=== PATIENT | male | born 1985 | race Caucasian/White ===

== ENCOUNTER 2021-12-15 18:21 | Emergency (ER) | payer SELFPAY ==
[~2021-12-15] VITALS: Ht 193 cm; Wt 130.0 kg
[2021-12-15 18:21] VITALS: BP 162/93
--- NOTE | 2021-12-15 18:42 | PHYS DOC ---
Past History Additional Past Medical Histor: SYNCOPE Past Surgical History: Other Alcohol Use: Rarely Adult General Chief Complaint Chief Complaint: SYNCOPE HPI HPI Patient is a 36-year-old male who presents with a chief complaint of syncope while at work that was unwitnessed. States he passed out thinks he was passed out for about 2 minutes and thinks he hit his head on the way down to the ground on a cabinet. States this happened to him about 6 or 8 months ago but has not seen a doctor for this. Denies any recent travels, traumas, illness, fevers, neck pain, chest pain, shortness of breath, abdominal pain, nausea, vomiting, diarrhea. Denies any dysuria or hematuria. Denies any numbness/weakness/tingling. Denies any trouble sitting, standing or walking. States here in the ED he is otherwise asymptomatic. Review of Systems Review of Systems Review of systems otherwise unremarkable except noted in HPI Allergies Allergies Allergies Coded Allergies Type Severity Reaction Last Updated Verified onion Allergy Unknown 12/15/21 Yes Physical Exam Physical Exam Constitutional: Well developed, well nourished, no acute distress, non-toxic appearance. [] HENT: Normocephalic, atraumatic, bilateral external ears normal, oropharynx moist, no oral exudates, nose normal. [] Eyes: PERRLA, EOMI, conjunctiva normal, no discharge. [] Neck: Normal range of motion, no tenderness, supple, no stridor. [] Cardiovascular:Heart rate regular rhythm, no murmur [] Lungs & Thorax: Bilateral breath sounds clear to auscultation [] Abdomen: soft, no tenderness, no masses, no pulsatile masses. [] Skin: Warm, dry, no erythema, no rash. [] Back: No tenderness, no CVA tenderness. [] Extremities: No tenderness, no cyanosis, no clubbing, ROM intact, no edema. [] Neurologic: Alert and oriented X 3, normal motor function, normal sensory function, able to sit, stand and walk, no focal deficits noted. [] Psychologic: Affect normal, judgement normal, mood normal. [] Current Patient Data Vital Signs Vital Signs Date Time Temp Pulse Resp B/P (MAP) Pulse Ox O2 Delivery O2 Flow Rate FiO2 12/15/21 18:21 97.7 103 24 162/93 (116) 96 12/15/21 18:21 Room Air EKG EKG [] Radiology/Procedures Radiology/Procedures [] Heart Score C/O Chest Pain: No Risk Factors: Risk Factors: DM, Current or recent (<one month) smoker, HTN, HLP, family history of CAD, obesity. Risk Scores: Risk Factors: DM, Current or recent (<one month) smoker, HTN, HLP, family history of CAD, obesity. Course & Med Decision Making Course & Med Decision Making Patient is a 36-year-old male who presents after an unwitnessed endorsed syncopal episode Vital signs notable for tachycardia and hypertension. Physical exam noted above. EKG with a rate of 106, QRS of 90, QTc of 448, no STEMI. Troponin normal. Patient able to take p.o. in the ED without issue. Heart rate improved while in the emergency department. Patient asymptomatic. Laboratory analysis notable for a creatinine of 1.4. Patient stated that his creatinine was 1.2 last time he checked. Discussed all findings with patient. Advised on nutrition and hydration as his urine did appear dark today. Offered admission and/or observation in the ED with IV fluid resuscitation. Patient was grateful, stated that he would go home and drink fluids. Advised to follow-up in the morning with primary care physician to update on ED visit and set up a follow-up. Given a work note for today and tomorrow to accomplish t his. Gave strict return precautions to the ED. Patient grateful, verbalized understanding agree with plan of discharge. Dragon Disclaimer Dragon Disclaimer This electronic medical record was generated, in whole or in part, using a voice recognition dictation system. Departure Departure: Impression: Primary Impression: Syncope Additional Impression: Dehydration Disposition: 01 HOME / SELF CARE / HOMELESS Condition: STABLE Referrals: ESTELA ALEXANDER MD Patient Instructions: Dehydration, Adult, Syncope Additional Instructions: Thank you for coming into the emergency department tonight and allowing us to take care of you. Please read the attached information carefully to go over things we discussed. As we discussed your kidney enzyme was slightly elevated today which could be from a lot of reasons. Your urine did look really dark and this could suggest dehydration as we discussed. Rest of your work-up today was reassuring. However discussed your work-up is reassuring does not mean there is not something else going on that needs to be reevaluated and followed by your primary care physician. Please call your primary care physician as soon as you can update on your ED visit and set up a post ER follow-up visit as soon as possible. You are given a work note for today and tomorrow to help accomplish this. Please come back with new or concerning symptoms as we discussed. Problem Qualifiers ARVIN VERGARA MD December 15, 2021 18:42
[2021-12-15 19:13] LABS: BASO # 0.1 x10^3/uL (0.0-0.2); BASO % 1 % (0-3); EOS # 0.1 x10^3/uL (0.0-0.7); EOS % 1 % (0-3); HEMATOCRIT 39.8 % (39.0-53.0); HEMOGLOBIN 13.6 g/dL (13.0-17.5); LYMPH # 2.5 x10^3/uL (1.0-4.8); LYMPH % 41 % (24-48); MEAN CORPUSCULAR HEMOGLOBIN 32 pg (25-35); MEAN CORPUSCULAR HGB CONC 34 g/dL (31-37); MEAN CORPUSCULAR VOLUME 92 fL (79-100); MONO # 0.4 x10^3/uL (0.0-1.1); MONO % 7 % (0-9); NEUT % 50 % (31-73); PLATELET COUNT 226 x10^3/uL (140-400); RED BLOOD COUNT 4.32 x10^6/uL (4.30-5.70)
[2021-12-15 19:18] LABS: CALCIUM 9.3 mg/dL (8.5-10.1); CREATININE 1.4 mg/dL (0.7-1.3); GFR 56.7
[2021-12-15 20:20] LABS: BARBITURATES NEG (NEG); BENZODIAZEPINES NEG (NEG); CANNABINOIDS NEG (NEG); COCAINE NEG (NEG); METHADONE NEG (NEG); OPIATES NEG (NEG); PHENCYCLIDINE NEG (NEG)
[2021-12-15 20:22] LABS: AMPHETAMINE/METHAMPHETAMINE NEG (NEG)
[2021-12-15 20:26] LABS: BACTERIA,URINE 0 /HPF (0-FEW); CLARITY,URINE CLEAR; COLOR,URINE YELLOW; GLUCOSE,URINE NEG (NEG); NITRITE,URINE NEG (NEG); RBC,URINE RARE /HPF (0-2); UROBILINOGEN,URINE 0.2 mg/dL (0.2 mg/dL); WBC,URINE 0 /HPF (0-4)
== END 2021-12-15 18:52 | disposition home or self-care (01) ==
LOC: ER 18:21
DX: R55 Syncope and collapse (principal); E86.0 Dehydration; Z91.018 Allergy to other foods
CPT/HCPCS: 36415; 80048; 80307; 81001; 83735; 84484; 85025; 99284